=== PATIENT | male | born 1960 | race Caucasian/White ===

== ENCOUNTER 2018-05-24 07:43 | Inpatient (IN) | payer BC ==
[2018-05-24 08:31] LABS: BASO % 0.1 % (0.0-1.0); EOS % 0.5 % (0.0-3.0); HEMATOCRIT 44.7 % (42.0-52.0); HEMOGLOBIN 14.9 g/dl (13.5-17.5); IMMATURE GRANULOCYTE % 0.7 % (0-3.0); LYMPH # 0.9 10^3/uL (1.5-4.5); LYMPH % 10.1 % (24.0-44.0); MEAN CORPUSCULAR HGB CONC 33.3 g/dl (32.0-36.5); MEAN CORPUSCULAR VOLUME 90.1 fl (80.0-96.0); MONO # 0.5 10^3/uL (0.0-0.8); MONO % 5.4 % (0.0-5.0); NEUTROPHILS % 83.2 % (36.0-66.0); PLATELET COUNT, AUTOMATED 250 10^3/uL (150-450); RED BLOOD COUNT 4.96 10^6/uL (4.30-6.10); RED CELL DISTRIBUTION WIDTH 13.2 % (11.5-14.5); WHITE BLOOD COUNT 8.4 10^3/uL (4.0-10.0)
[2018-05-24] MEDS: ONDANSETRON 4MG/2ML VIAL (J2405) IV (08:34)
[2018-05-24] MEDS: NS 1,000 ML IV (08:35)
[2018-05-24] MEDS: MORPHINE 4 MG/ML 1ML VIAL/SYRINGE (J2270) IV (08:35)
[2018-05-24 08:41] LABS: INR 0.96; PROTHROMBIN TIME 12.9 SECONDS (12.1-14.4)
[2018-05-24 08:42] LABS: PARTIAL THROMBOPLASTIN TIME 26.5 SECONDS (25.4-37.6)
[2018-05-24 08:44] LABS: ALBUMIN 3.7 GM/DL (3.2-5.2); ALBUMIN/GLOBULIN RATIO 0.97 (1.00-1.93); ALKALINE PHOSPHATASE 333 U/L (45-117); ALT/SGPT 535 U/L (12-78); AMYLASE 29 U/L (25-115); ANION GAP 6 MEQ/L (8-16); AST/SGOT 344 U/L (7-37); BILIRUBIN,DIRECT 4.8 MG/DL (0.0-0.2); BILIRUBIN,TOTAL 5.8 MG/DL (0.2-1.0); BLOOD UREA NITROGEN 11 MG/DL (7-18); CALCIUM LEVEL 9.3 MG/DL (8.5-10.1); CARBON DIOXIDE LEVEL 27 MEQ/L (21-32); CHLORIDE LEVEL 104 MEQ/L (98-107); CREATININE FOR GFR 0.95 MG/DL (0.70-1.30); GLOMERULAR FILTRATION RATE > 60.0 (>56); GLUCOSE, FASTING 143 MG/DL (70-100); LIPASE 113 U/L (73-393); POTASSIUM SERUM 4.7 MEQ/L (3.5-5.1); SODIUM LEVEL 137 MEQ/L (136-145); TOTAL PROTEIN 7.5 GM/DL (6.4-8.2)
[2018-05-24 08:44] LABS: LACTIC ACID SEPSIS PROTOCOL 0.7 MMOL/L (0.4-2.0)
[2018-05-24 10:23] LABS: SP GRAVITY,URINE MANUAL REFLEX 1.025 (1.002-1.035)
[2018-05-24 10:24] LABS: GLUCOSE, URINE (UA) MANUAL NEGATIVE (NEGATIVE); KETONE, URINE MANUAL 2+ mg/dL (NEGATIVE); PROTEIN, URINE MANUAL REFLEX TRACE mg/dL (NEGATIVE)
[2018-05-24 10:25] LABS: BILIRUBIN, URINE MANUAL OBSCURED (NEGATIVE); BLOOD URINE MANUAL RFX TRACE (NEGATIVE); NITRITE, URINE MANUAL RFX OBSCURED (NEGATIVE); UROBILINOGEN, URINE MANUAL OBSCURED mg/dl (NORMAL)
[2018-05-24 10:27] LABS: MICROSCOPIC INDICATED? RFX YES (NO)
[2018-05-24] MEDS ORDERED: D5W/0.45% SODIUM CHLORIDE 1,000 ML IV (10:45)
[2018-05-24 10:52] LABS: BACTERIA, URINE NONE SEEN; HYALINE CAST, URINE NONE SEEN /lpf (0-1); OTHER CRYSTALS, URINE AMM BIURATE /hpf; RBC, URINE 0-1 /hpf (0-3); SQUAMOUS EPITHELIAL CELL URINE SMALL AMOUNT /hpf (SMALL AMT)
[2018-05-24 10:53] LABS: MICROSCOPIC EXAM PERFORMED
[2018-05-24] MEDS ORDERED: MORPHINE 4 MG/ML 1ML VIAL/SYRINGE (J2270) IV (11:30)
[2018-05-24] MEDS ORDERED: ONDANSETRON 4MG/2ML VIAL (J2405) IV ×2 (11:30→18:45)
[2018-05-24] MEDS ORDERED: ENOXAPARIN 40 MG/0.4 ML SYRINGE (J1650) SC (12:00)
[2018-05-24] MEDS: NICOTINE 21MG/24HR 1 EA TRANSDERMAL TD ×2 (12:18→20:52)
[2018-05-24] MEDS: MORPHINE 2 MG/ML 1ML SYRINGE (J2270) IV (12:18)
[2018-05-24] MEDS: D5W/0.45% SODIUM CHLORIDE 1,000 ML IV ×2 (12:26→20:54)
[2018-05-24] MEDS ORDERED: ZOSYN 3.375 GM VIAL (J2543) As Ordered (15:29)
[2018-05-24] MEDS: ISOVUE-300 61% 50ML VIAL (Q9967) As Ordered ×2 (15:30→15:39)
[2018-05-24] MEDS ORDERED: GLYCOPYRROLATE INJ 0.2 MG/ML 2 ML VIAL As Ordered (16:00)
[2018-05-24] MEDS ORDERED: PROPOFOL 200 MG/20 ML VIAL As Ordered (16:01)
[2018-05-24] MEDS ORDERED: ONDANSETRON 4MG/2ML VIAL (J2405) As Ordered (16:01)
[2018-05-24] MEDS ORDERED: MIDAZOLAM INJ 2 MG/2 ML VIAL (J2250) As Ordered (16:01)
[2018-05-24] MEDS ORDERED: ROCURONIUM BROMIDE 50 MG/5 ML VIAL As Ordered (16:01)
[2018-05-24] MEDS ORDERED: NEOSTIGMINE 10 MG/10 ML VIAL (J2710) As Ordered (16:01)
[2018-05-24] MEDS ORDERED: fentaNYL 100 MCG/2 ML INJECTION (J3010) As Ordered (16:01)
[2018-05-24] MEDS ORDERED: dexameTHASONE 4 MG/ML 1ML VIAL (J1100) As Ordered (16:01)
[2018-05-24] MEDS ORDERED: LIDOCAINE 2% INJ 100 MG/5 ML SDV (FOR ANES.) As Ordered (16:01)
[2018-05-24] MEDS: PIPERACILLIN/TAZOBACTAM SOD 3.375 GM in D5W MINI-BAG PLUS 50 ML IV ×2 (16:30→22:35)
[2018-05-24] MEDS ORDERED: SUGAMMADEX SODIUM 500 MG/5 ML VIAL (BRIDION) As Ordered (17:14)
[2018-05-24] MEDS: LR 1,000 ML IV (18:45)
[2018-05-24] MEDS ORDERED: fentaNYL 100 MCG/2 ML INJECTION (J3010) IV (18:45)
[2018-05-25] MEDS: PIPERACILLIN/TAZOBACTAM SOD 3.375 GM in D5W MINI-BAG PLUS 50 ML IV ×2 (04:24→09:40)
[2018-05-25] MEDS: D5W/0.45% SODIUM CHLORIDE 1,000 ML IV (07:21)
[2018-05-25 07:26] LABS: HEMATOCRIT 38.6 % (42.0-52.0); MEAN CORPUSCULAR HEMOGLOBIN 29.9 pg (27.0-33.0); MEAN CORPUSCULAR HGB CONC 33.4 g/dl (32.0-36.5); MEAN CORPUSCULAR VOLUME 89.4 fl (80.0-96.0); PLATELET COUNT, AUTOMATED 221 10^3/uL (150-450); RED BLOOD COUNT 4.32 10^6/uL (4.30-6.10); RED CELL DISTRIBUTION WIDTH 13.3 % (11.5-14.5)
[2018-05-25 07:34] LABS: HEMOGLOBIN 12.9 g/dl (13.5-17.5)
[2018-05-25 07:50] LABS: ALBUMIN/GLOBULIN RATIO 0.97 (1.00-1.93); ALKALINE PHOSPHATASE 276 U/L (45-117); ALT/SGPT 342 U/L (12-78); ANION GAP 7 MEQ/L (8-16); AST/SGOT 121 U/L (7-37); BILIRUBIN,TOTAL 1.8 MG/DL (0.2-1.0); BLOOD UREA NITROGEN 8 MG/DL (7-18); CALCIUM LEVEL 8.3 MG/DL (8.5-10.1); CARBON DIOXIDE LEVEL 29 MEQ/L (21-32); CHLORIDE LEVEL 107 MEQ/L (98-107); CREATININE FOR GFR 0.87 MG/DL (0.70-1.30); GLOMERULAR FILTRATION RATE > 60.0 (>56); GLUCOSE, FASTING 111 MG/DL (70-100); POTASSIUM SERUM 4.6 MEQ/L (3.5-5.1); SODIUM LEVEL 143 MEQ/L (136-145); TOTAL PROTEIN 6.1 GM/DL (6.4-8.2)
[2018-05-25] MEDS: NICOTINE 21MG/24HR 1 EA TRANSDERMAL TD (09:00)
== END 2018-05-25 11:05 | disposition home or self-care (01) ==
LOC: M ED 07:43 → M ED INP 11:21 → M MS5PR 20:00
PROC: 0FC98ZZ Extirpation of Matter from Common Bile Duct, Via Natural or Artificial Opening Endoscopic (ICD-10-PCS; principal; 2018-05-24 10:19)
PROC: 0F7D8DZ Dilation of Pancreatic Duct with Intraluminal Device, Via Natural or Artificial Opening Endoscopic (ICD-10-PCS; 2018-05-24 10:19)
DX: K80.43 Calculus of bile duct with acute cholecystitis with obstruction (principal); F17.210 Nicotine dependence, cigarettes, uncomplicated; H54.61 Unqualified visual loss, right eye, normal vision left eye; Z79.1 Long term (current) use of non-steroidal anti-inflammatories (NSAID); Z79.82 Long term (current) use of aspirin; Z87.442 Personal history of urinary calculi

== ENCOUNTER → 2018-06-19 | Outpatient (CLI) | payer BC | LOC: M WUC 15:06 | DX: T18.3XXA Foreign body in small intestine, initial encounter (principal) | CPT/HCPCS: 74018 ==

== ENCOUNTER → 2018-07-15 | Outpatient (CLI) | payer BC | LOC: M EKG 16:32 | DX: Z01.818 Encounter for other preprocedural examination (principal); F17.210 Nicotine dependence, cigarettes, uncomplicated; R00.1 Bradycardia, unspecified | CPT/HCPCS: 93005 ==

== ENCOUNTER 2018-07-17 13:42 | Emergency (ER) | payer BC ==
[2018-07-17 14:43] LABS: BASO % 0.3 % (0.0-1.0); EOS # 0.1 10^3/uL (0.0-0.50); EOS % 0.9 % (0.0-3.0); HEMOGLOBIN 14.8 g/dl (13.5-17.5); IMMATURE GRANULOCYTE % 0.6 % (0-3.0); LYMPH # 1.9 10^3/uL (1.5-4.5); LYMPH % 17.2 % (24.0-44.0); MEAN CORPUSCULAR HEMOGLOBIN 29.8 pg (27.0-33.0); MEAN CORPUSCULAR HGB CONC 33.6 g/dl (32.0-36.5); MEAN CORPUSCULAR VOLUME 88.7 fl (80.0-96.0); MONO # 0.6 10^3/uL (0.0-0.8); MONO % 5.8 % (0.0-5.0); NEUTROPHILS # 8.1 10^3/uL (1.8-7.7); NEUTROPHILS % 75.2 % (36.0-66.0); PLATELET COUNT, AUTOMATED 284 10^3/uL (150-450); RED BLOOD COUNT 4.96 10^6/uL (4.30-6.10); RED CELL DISTRIBUTION WIDTH 12.5 % (11.5-14.5); WHITE BLOOD COUNT 10.8 10^3/uL (4.0-10.0)
[2018-07-17] MEDS: NS 1,000 ML IV (14:46)
[2018-07-17] MEDS: ONDANSETRON 4MG/2ML VIAL (J2405) IV (14:46)
[2018-07-17] MEDS: MORPHINE 4 MG/ML 1ML VIAL/SYRINGE (J2270) IV (14:47)
[2018-07-17 15:18] LABS: ALBUMIN 3.8 GM/DL (3.2-5.2); ALBUMIN/GLOBULIN RATIO 1.19 (1.00-1.93); ALKALINE PHOSPHATASE 62 U/L (45-117); ALT/SGPT 22 U/L (12-78); ANION GAP 7 MEQ/L (8-16); AST/SGOT 11 U/L (7-37); BILIRUBIN,DIRECT 0.1 MG/DL (0.0-0.2); BILIRUBIN,TOTAL 0.4 MG/DL (0.2-1.0); BLOOD UREA NITROGEN 16 MG/DL (7-18); CALCIUM LEVEL 9.1 MG/DL (8.5-10.1); CARBON DIOXIDE LEVEL 30 MEQ/L (21-32); CHLORIDE LEVEL 103 MEQ/L (98-107); CPK CREATINE PHOSPHOKINASE 98 U/L (39-308); GLOMERULAR FILTRATION RATE > 60.0 (>56); GLUCOSE, FASTING 114 MG/DL (70-100); LIPASE 92 U/L (73-393); MB/CK RELATIVE INDEX 1.02 (< OR =4); POTASSIUM SERUM 4.8 MEQ/L (3.5-5.1); SODIUM LEVEL 140 MEQ/L (136-145); TROPONIN I < 0.02 NG/ML (< 0.10)
[2018-07-17 15:40] LABS: AMORPHOUS SEDIMENT RFX MODERATE (NEGATIVE); KETONE, URINE AUTO RFX NEGATIVE (NEGATIVE); LEUKOCYTE ESTERASE UR AUTO RFX NEGATIVE (NEGATIVE); MUCUS, URINE RFX SMALL (NEGATIVE); NITRITE, URINE AUTO RFX NEGATIVE (NEGATIVE); RBC, URINE AUTO RFX TNTC /HPF (0-3); SQUAM EPITHELIAL CELL UR AURFX 0 /HPF (0-6); WBC, URINE AUTO RFX 2 /HPF (0-3)
== END 2018-07-17 16:46 | disposition home or self-care (01) ==
LOC: M ED 13:42
DX: N21.0 Calculus in bladder (principal); N13.30 Unspecified hydronephrosis; F41.9 Anxiety disorder, unspecified; F17.210 Nicotine dependence, cigarettes, uncomplicated
CPT/HCPCS: J2270

== ENCOUNTER 2018-07-19 09:01 | Day surgery (SDC) | payer BC ==
[2018-07-19] MEDS: LR 1,000 ML IV (09:15)
[2018-07-19] MEDS ORDERED: GLYCOPYRROLATE INJ 0.2 MG/ML 2 ML VIAL As Ordered (10:21)
[2018-07-19] MEDS ORDERED: fentaNYL 100 MCG/2 ML INJECTION (J3010) As Ordered ×2 (10:21→11:16)
[2018-07-19] MEDS ORDERED: NEOSTIGMINE 10 MG/10 ML VIAL (J2710) As Ordered (10:21)
[2018-07-19] MEDS ORDERED: dexameTHASONE 4 MG/ML 1ML VIAL (J1100) As Ordered (10:21)
[2018-07-19] MEDS ORDERED: KETOROLAC 60 MG/2 ML VIAL (J1885) As Ordered (10:21)
[2018-07-19] MEDS ORDERED: LIDOCAINE 2% INJ 100 MG/5 ML SDV (FOR ANES.) As Ordered (10:21)
[2018-07-19] MEDS ORDERED: ONDANSETRON 4MG/2ML VIAL (J2405) As Ordered ×2 (10:21→11:12)
[2018-07-19] MEDS ORDERED: MIDAZOLAM INJ 2 MG/2 ML VIAL (J2250) As Ordered (10:21)
[2018-07-19] MEDS ORDERED: PROPOFOL 200 MG/20 ML VIAL As Ordered (10:21)
[2018-07-19] MEDS ORDERED: ROCURONIUM BROMIDE 50 MG/5 ML VIAL As Ordered (10:21)
[2018-07-19] MEDS: BUPIVACAINE/EPIN 0.25% 30 ML VIAL As Ordered (10:56)
[2018-07-19] MEDS: ONDANSETRON 4MG/2ML VIAL (J2405) IV (11:13)
[2018-07-19] MEDS: fentaNYL 100 MCG/2 ML INJECTION (J3010) IV ×4 (11:18→11:38)
[2018-07-19] MEDS ORDERED: NORCO, ANEXSIA 5/325MG TABLET (HYDROcodone/ACETAMINOPHEN) PO (11:30)
[2018-07-19] MEDS ORDERED: LR 1,000 ML IV (11:30)
[2018-07-19] MEDS: NORCO, ANEXSIA 5/325MG TABLET (HYDROcodone/ACETAMINOPHEN) PO ×2 (11:43→13:01)
== END 2018-07-19 14:25 | disposition home or self-care (01) ==
LOC: M SDC 09:01
DX: K80.10 Calculus of gallbladder with chronic cholecystitis without obstruction (principal); Z72.0 Tobacco use
CPT/HCPCS: 47562

== ENCOUNTER 2018-12-25 09:31 | Emergency (ER) | payer BC ==
[~2018-12-25] VITALS: Ht 177.8 cm; Wt 79.5 kg
[~2018-12-25 09:31] MED LIST: ALEV220T26 PO; ASPI1TAB PO; CETI10TA; FLOM0.4C39 PO; NICO21PAT TD; NORCOTAB PO; VITMTA PO
[2018-12-25] MEDS ORDERED: NS 1,000 ML IV ONE (10:00)
[2018-12-25] MEDS ORDERED: ONDANSETRON 4MG/2ML VIAL (J2405) IV ONE (10:00)
[2018-12-25] MEDS ORDERED: KETOROLAC 30 MG/ML VIAL (J1885) IV ONE (10:00)
[2018-12-25 10:15] LABS: BASO % 0.5 % (0.0-1.0); EOS # 0.1 10^3/uL (0.0-0.50); EOS % 1.1 % (0.0-3.0); HEMATOCRIT 47.6 % (42.0-52.0); HEMOGLOBIN 15.9 g/dl (13.5-17.5); LYMPH # 1.6 10^3/uL (1.5-4.5); LYMPH % 25.4 % (24.0-44.0); MEAN CORPUSCULAR HEMOGLOBIN 29.9 pg (27.0-33.0); MEAN CORPUSCULAR HGB CONC 33.4 g/dl (32.0-36.5); MEAN CORPUSCULAR VOLUME 89.5 fl (80.0-96.0); MONO # 0.5 10^3/uL (0.0-0.8); MONO % 7.8 % (0.0-5.0); NEUTROPHILS # 4.1 10^3/uL (1.8-7.7); NEUTROPHILS % 64.7 % (36.0-66.0); PLATELET COUNT, AUTOMATED 274 10^3/uL (150-450); RED BLOOD COUNT 5.32 10^6/uL (4.30-6.10); WHITE BLOOD COUNT 6.4 10^3/uL (4.0-10.0)
[2018-12-25 10:44] LABS: ALBUMIN 3.9 GM/DL (3.2-5.2); ALT/SGPT 22 U/L (12-78); AMYLASE 38 U/L (25-115); BILIRUBIN,DIRECT 0.1 MG/DL (0.0-0.2); BILIRUBIN,TOTAL 0.5 MG/DL (0.2-1.0); BLOOD UREA NITROGEN 16 MG/DL (7-18); CALCIUM LEVEL 9.1 MG/DL (8.5-10.1); CARBON DIOXIDE LEVEL 31 MEQ/L (21-32); CHLORIDE LEVEL 104 MEQ/L (98-107); CREATININE FOR GFR 1.08 MG/DL (0.70-1.30); GLOMERULAR FILTRATION RATE > 60.0 (>56); GLUCOSE, FASTING 116 MG/DL (70-100); LIPASE 108 U/L (73-393); POTASSIUM SERUM 4.6 MEQ/L (3.5-5.1); SODIUM LEVEL 140 MEQ/L (136-145); TOTAL PROTEIN 7.3 GM/DL (6.4-8.2)
--- NOTE | 2018-12-25 10:56 | REP ---
CT abdomen and pelvis without IV or oral contrast: History: Left flank pain. History of kidney stones. Comparison study July 17, 2018. CT findings: Preliminary digital patternmaker all around radiograph demonstrates a normal bowel gas pattern. There are clips in the right upper quadrant. The lung bases are essentially clear. The liver and spleen remain normal in size homogeneous in texture. The gallbladder is surgically absent. The pancreas is unremarkable. No adrenal lesion is seen on either side. There is mild left-sided hydronephrosis and hydroureter secondary to a 3 mm distal ureteral stone located 2-3 cm above the ureterovesical junction. This stone was previously noted within the intrarenal collecting system on July 17, 2018. No intrarenal calculus is visible on either side today. There is mild left colonic diverticulosis. A few dystrophic calcifications are noted in the prostate. Normal appendix is seen. Impression: Obstructive 3 mm left distal ureteral stone with mild left-sided hydronephrosis and hydroureter. Left colonic diverticulosis. Otherwise negative. Electronically Signed by Javi Levy MD 12/25/2018 01:15 P
[2018-12-25] MEDS ORDERED: FLOM0.4C39 PO (12:15)
[2018-12-25] MEDS ORDERED: NORCOTAB PO (12:16)
[2018-12-25] MEDS ORDERED: KETO10TAB PO (12:16)
[2018-12-25] MEDS ORDERED: ONDA4TAB6 PO (12:20)
[2018-12-25 12:39] VITALS: BP 136/86
== END 2018-12-25 12:39 | disposition home or self-care (01) ==
LOC: M ED 09:31
DX: N20.1 Calculus of ureter (principal); F17.210 Nicotine dependence, cigarettes, uncomplicated
CPT/HCPCS: 74176; 80048; 80076; 81001; 82150; 83690; 85025; 96361; 96374; 96375; 99284; J1885; J2405

== ENCOUNTER → 2019-04-09 | Outpatient (REF) | payer BC ==
[~2019-04-09] MED LIST changes: -ASPI1TAB PO; +ASPI81TA26 PO; +HYDR-3715 PO; +KETO10TAB PO; -NORCOTAB PO; +ONDA4TAB6 PO
== END ==
LOC: M LAB REF 08:47
PROVIDERS: ATTEND Physician Assistant
DX: J02.9 Acute pharyngitis, unspecified (principal)

== ENCOUNTER → 2024-06-27 | Outpatient (CLI) | payer BC ==
[~2024-06-27] MED LIST changes: +ONDA-282 PO; -ONDA4TAB6 PO
== END ==
LOC: M WUC 14:11
PROVIDERS: ATTEND Physician Assistant Medical
DX: M54.2 Cervicalgia (principal)